=== PATIENT | female | born 1995 | race Caucasian/White ===

== ENCOUNTER → 2023-07-13 | Outpatient (CLI) | payer SELFPAY ==
--- NOTE | 2023-07-13 08:58 | US_ITS ---
STUDY: ULTRASOUND BREAST - RIGHT REASON FOR EXAM: Female, 28 years old. Intermittent palpable right breast lump not resolving with menstrual cycle. TECHNIQUE: Axial and longitudinal images of the RIGHT breast were performed with a high resolution ultrasound transducer. # OF IMAGES: 29 COMPARISON: Bilateral diagnostic mammogram performed today. FINDINGS: RIGHT Breast: At the 9:00 position of the right breast in the slightly retroareolar region there is a relatively circumscribed hypoechoic bilobed mass measuring 3 cm x 3.1 cm x 2.1 cm with vascularity. Lesion is most characteristic with a fibroadenoma in a patient of this age. However, cellular tumors may have a similar appearance. Therefore, ultrasound-guided biopsy or excision is recommended for histologic confirmation. US/Breast Limited Unilateral IMPRESSION: Bilobed hypoechoic vascular mass for which ultrasound-guided biopsy or excision is recommended for histologic confirmation. ASSESSMENT CATEGORY: BIRADS Category 4: Suspicious - Biopsy Should Be Considered. A letter regarding these results will be sent to the patient by the facility within 30 days. Electronically Signed: Huy Hatch MD at 10:21 EST ,
--- NOTE | 2023-07-13 08:58 | BI_ITS ---
MAMMOGRAPHY - BILATERAL SCREENING 3-D TOMOSYNTHESIS REASON FOR EXAM: Female, 28 years old. Right breast lump at 9:00 position lateral to the areola which is intermittently palpable and is related to menstrual cycle is. PERTINENT HISTORY: No significant family history. TECHNIQUE: 2-D mammograms and 3-D Tomosynthesis of the breast (s) were performed. CAD was performed. COMPARISON: None. FINDINGS: The breast composition is Abdomen 9:00 position of the right breast and a lateral retroareolar region there is a circumscribed partially obscured mass measuring 3.2 cm x 2.7 cm. Ultrasound of the right breast showed bilobed hypoechoic vascular mass for which ultrasound-guided biopsy or excision is recommended (see detailed right breast ultrasound report). Left breast shows scattered benign calcifications. BI/DIAG MAMM W/CAD, BILAT IMPRESSION: Lesion in the right breast for which ultrasound-guided biopsy or excision is recommended for histologic confirmation. ASSESSMENT CATEGORY: BIRADS Category 4: Suspicious - Biopsy Should Be Considered. A letter regarding these results will be sent to the patient by the facility within 30 days. FOLLOW UP RECOMMENDATION: Ultrasound Biopsy Recommended. (L) Approximately 10% of breast cancers are not detected by mammography. A normal mammogram should not delay biopsy of a clinically suspicious abnormality. Electronically Signed: Huy Hatch MD at 10:22 [facility] ,
--- OUTSIDE RECORDS SUMMARY | 2023-07-13 09:22 | XMS RPT_ITS | CCD ---
Author Name Unknown Address [address] [place] [address] Organization [facility] Care Team Providers Care Drug Abuse Program Coordinator Name Role Phone MARAL PÉREZ Unavailable Unavailable CHISMSTEVE, MARAL Verde Unavailable Unavailable VACCARIELLO, DALTON Admitting Unavailable VACCARIELLO, DALTON Attending Unavailable VACCARIELLO, DALTON Primary Care Unavailable VACCARIELLO, DALTON Consulting Unavailable PROVIDER, UNKNOWN Consulting Unavailable PROVIDER, UNKNOWN Consulting Unavailable PROVIDER, UNKNOWN Consulting Unavailable Problems Active Problems Problem Classification Problem Date Documented Da te Episodic/Chronic Unclassified (1 source) Unknown / UNK(Unknown) Onset: 08-03-2017 Past or Other Problems Problem Classification Problem Date Documented Da te Episodic/Chronic Unclassified (1 source) PREG AT TERM Onset: 08-03-2017 Results Test Name Value Interpretation Reference Range Facil ity Encounters Encounter Date Encounter Type Care Provider Facility Start: 09-22-2022 End: 09-22-2022 ambulatory DALTON SILVANOEMI Iglesiasue Villavicencio [facility] Start: 08-03-2017 End: 08-05-2017 Evaluation and management of inpatient MARAL PÉREZ Facility:[facility] Payers Date Payer Category Payer Unknown [id number] Self-pay [id number] Unknown Summary Purpose Family History No Family History Records FoundNo Family History Records FoundNo Family History Records FoundNo Family History Records Found Advance Directives No Advanced Directives Records FoundNo Advanced Directives Records FoundNo Advanced Directives Records FoundNo Advanced Directives Records Found Additional Source Comments INFORMATION SOURCE (unrecogn ized section and content) DATE CREATED AUTHOR AUTHOR'S ORGANIZ ATION 06/23/2018 [facility] DATE CREATED AUTHOR AUTHOR'S ORGANIZ ATION 09/23/2022 Iglesia Villavicencio [facility] DATE CREATED AUTHOR AUTHOR'S ORGANIZ ATION 11/27/2022 [facility] FOR RECORDS PERTAINING TO PATIENTS WHO ARE OR HAVE BEEN ENROLLED IN A CHEMICAL DEPENDENCY/SUBSTANCEABUSE PROGRAM, SOME INFORMATION MAY BE OMITTED. This clinical summary was aggregated from multiple sources. Caution should be exercised in using it in the provision of clinical care. This summary normalizes information from multiple sources, and as a consequence, information in this document may materially change the coding, format and clinical context of patient data. In addition, data may be omitted in some cases. CLINICAL DECISIONS SHOULD BE BASED ON THE PRIMARY CLINICAL RECORDS. [facility] [facility]. provides no warranty or guarantee of the accuracy or completeness of information in this document.
== END | disposition home or self-care (01) ==
LOC: OPBI 08:56
PROVIDERS: PCP Physician Assistant; Referring Provider Physician Assistant; Visit Provider Physician Assistant
DX: Z12.31 Encounter for screening mammogram for malignant neoplasm of breast (principal); N63.15 Unspecified lump in the right breast, overlapping quadrants; N63.25 Unspecified lump in the left breast, overlapping quadrants
CPT/HCPCS: 76642; 77062; 77066; G0279

== ENCOUNTER → 2023-07-19 | Outpatient (CLI) | payer SELFPAY ==
--- NOTE | 2023-07-19 09:00 | BRBX_PTH ---
PATHOLOGY RESULTS PATIENT: MYLES MORALES LOC: [facility] U#:[id number] AGE/SX: 28/F ROOM: RE07/19/[address]: Dr. 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 Negative for malignancy. See comment. LOYDA:per 07/20/2023 COMMENT Correlation with clinical, radiologic findings and appropriate follow up are necessary. MICROSCOPIC DESCRIPTION Slides are reviewed. GROSS DESCRIPTION Received in fixative is one container labeled with the patient's name and designated right breast. The specimen consists of multiple elongated fragments of vigil-yellow fibroadipose tissue that in aggregate measure 1.5 x 0.3 x 0.1 cm. The entire specimen is submitted in one cassette. / LOYDA:per 07/19/2023 TC:1 Ischemic Time: 1 minute Fixation Time: 10.5 hours CPT: 73198
--- OUTSIDE RECORDS SUMMARY | 2023-07-19 10:34 | XMS RPT_ITS | CCD ---
Author Name Unknown Address [address] [place] [address] Organization [facility] Care Team Providers Care Director Safety Name Role Phone MARAL PÉREZ Unavailable Unavailable MARAL PÉREZ Unavailable Unavailable VACCARIELLO, DALTON Admitting Unavailable VACCARIELLO, DALTON Attending Unavailable VACCARIELLO, DALTON Primary Care Unavailable VACCARIELLO, DALTON Consulting Unavailable PROVIDER, UNKNOWN Consulting Unavailable PROVIDER, UNKNOWN Consulting Unavailable PROVIDER, UNKNOWN Consulting Unavailable Vaccarijonny RAMIREZ, Dalton Verde Unavailable Jon SALESN, Nida Unavailable Suzanna GUZMAN, Joe Barnett Unavailable Marino SALESN, Allyssa Unavailable Unavailable Jessica JARRETT, Dorina Verde Unavailable Unavaila ble Jose Angel SALESN, Ines Unavailable Unavailable Mike GUZMAN, Aleyda Serrano Unavailable Barry EMERGENCY MANAGEMENT CONSULTANT, Imani Poe Unavailable Unavailab jazzy Lee CNM, Crystal K Unavailable Vess EMERGENCY MANAGEMENT CONSULTANT, Sissy L Unavailable Unavailable Zaugg EMERGENCY MANAGEMENT CONSULTANT, Joanne Unavailable Unavailable Unavailable Unavailable [facility] Unavailable Medications Completed/Discontinued Medications Medication Drug Class(es) Dates Sig (Normalized) Sig (Original) amoxicillin 875 mg oral tablet (4 sources) Penicillin-class Antibacterial Start: 09-18-2022 End: 11-23-2022 take 1 tablet by mouth twice daily Amoxicillin 875 MG Oral Tablet ; 1 (one) Tablet bid for 0 days Quantity: 20 {Tablet} Refills: 0 Ordered: 23-Nov-2022 ZOEY Webb Start: 18-Sep-2022 End: 23-Nov-2022 Status: Inactive 21 day ethinyl estradiol 0.137415 mg/hr / etonogestrel 0.005 mg/hr vaginal system (4 sources) Progestin, Estrogen Start: 02-12-2014 End: 11-23-2014 NUVARING, 0.12-0.015MG/24HR (Vaginal Ring) ; 1 (one) Ring PV x3wk, off x1wk for 0 days Quantity: 1 {Ring} Refills: 11 Ordered: 23-Nov-2014 ZOEY Webb Start: 12-Feb-2014 End: 23-Nov-2014 Status: Inactive Comments: Start: on or before day 5 of menstrual cycle Problems Active Problems Problem Classification Problem Date Documented Da te Episodic/Chronic Abdominal pain (4 sources) Right lower quadrant pain; Translations: [Right lower quadrant pain] 05-23-2018 Episodic Allergic reactions (4 sources) Contact dermatitis due to poison lashell; Translations: [Allergic contact dermatitis due to plants, except food] 05-24-2021 Episodic Contraceptive and procreative management (4 sources) Contraception ; Translations: [Encounter for contraceptive management, unspecified] 09-13-2015 Episodic Inflammatory diseases of female pelvic organs (8 sources) Bacterial vaginosis; Translations: [Acute vaginitis] 11-27-2022 Episodic Nonmalignant breast conditions (20 sources) Lump in bilateral breasts; Translations: [Unspecified lump in the right breast, unspecified quadrant] 07-11-2023 Episodic Other complications of (8 sources) Anemia of ; Translations: [Anemia complicating , second trimester] 11-14-2021 Chronic Other complications of (8 sources) Reduced movement; Translations: [Decreased movements, third trimester, not applicable or unspecified] 11-14-2021 Episodic Other complications of (8 sources) RhD negative; Translations: [Other specified related conditions, second trimester] 11-14-2021 Episodic Other complications of (4 sources) Rhesus isoimmunization, unspecified as to episode of care or not applicable 04-29-2015 Episodic Other female genital disorders (8 sources) Vaginal discharge; Translations: [Other specified noninflammatory disorders of vagina] 07-05-2023 Episodic Past or Other Problems Problem Classification Problem Date Documented Date Episodic/Chronic Unclassified (1 source) PREG AT TERM Onset: 08-03-2017 Unclassified (4 sources) Breast lump - The lump is on the right breast. The onset of the lump has been acute and has been occurring in an intermittent (correlate with her period) pattern for 2 months. The course has been increasing. The lump is described as non tender. The lump is described as moderate. Note for Breast lump : Initially noticed it when she on her period and it was small - resolved.Periods are irregular since of son who is now 2 years old. In the past week or so it feels bigger and not going away and is not her on period currently. Nontender. No discharge from the nipple.Using drops to help with weight loss and irregular periods from collection correspondent -- has been using those for a few weeks. Primary Teacher didn't think it was anything to worry about. Unknown what is in the drops.No family history of breast cancer. Mom had 3 siblings with cancers - ovarian, esophageal, and stomach. 07-05-2023 Unclassified (4 sources) Vaginal discharge - The discharge has been occurring for 1 week and has been constant. The discharge has been heavy (pt said it is white) and is characterized as white. Note for Vaginal discharge : pt has had yeast in the past when she had her daughter.pt said it does not burn when she urinates but can burn when she wipes 11-24-2022 Unclassified (4 sources) Cough - The onset of the cough has been sudden and has been occurring in a persistent pattern for 3 weeks. The cough is characterized as dry. The cough occurs mainly at night. Associated symptoms include chest pain (left flank/side) and hoarseness, while there is no fever. Note for Cough : -Started after exposure to [place] in [place]. Entire family was coughing but they improved and she has not. 09-18-2022 Unclassified (4 sources) Post- visit - The patient is here for a scheduled follow-up visit after a vaginal delivery. There were no complications. The patient feels well with no complaints, is sleeping well and has good energy level. There are no urinary problems. There are no bowel problems. Perineum/wound: perineum healing well. There is no lochia. The patient is formula feeding the . There are no feeding difficulties. Menstruation: spotting. Patient states that sexual activity has resumed and contraception is used. The patient's current method of control is condoms. The patient has resumed physical activity. Patient states that she is coping/adjusting to motherhood well and family is interacting well with . 11-14-2021 Unclassified (4 sources) visit - The patient is here for a 38 week (3 days) visit. 09-13-2021 Unclassified (4 sources) visit - The patient is here for a 36 week (6 days) visit. 09-02-2021 Unclassified (4 sources) visit - The patient is here for a 33 week (6 days) visit. 08-12-2021 Unclassified (8 sources) visit - The patient is here for a 29 week visit. 07-14-2021 Unclassified (4 sources) visit - The patient is here for a 19 week visit. 05-04-2021 Unclassified (4 sources) Dizziness - The onset of the dizziness has been gradual and has been occurring in a persistent (says its only lasts a few minutes) pattern for 6 days. The course has been recurrent. The dizziness is characterized as lightheadedness (feels foggy) and spinning of the environment. The dizziness is precipitated by position change (only a few times). There has been associated nausea and neck pain (goes to chiro and had adjustment 2 weeks ago), while there has been no associated vomiting, headache, fever, upper respiratory infection symptoms, tinnitus, ear pain, ear fullness, neck stiffness, visual changes, facial paralysis or falling episodes. The dizziness is relieved by lying still (and rest). 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 Note for Dizziness : feels like a toño buenrostro contraction that last 5-10 minsfeels like its a hot flash at times she gets really warmpt is 18 wks 04-25-2021 Unclassified (8 sources) visit - The patient is here for a 12 week visit. 03-16-2021 Unclassified (4 sources) visit - The patient is here for a initial visit. Last menstrual period: Date: (12/18/20). Estimated date of delivery is : (09/24/21) The patient has good energy level and feels well with minor complaints. The patient has complaints of nausea. There has been no vaginal discharge. There has been no vaginal bleeding. There have been no urinary problems. There have been no bowel problems. The patient takes supplemental vitamins & iron. Habits do not include tobacco, alcohol or illicit drugs. The patient states that she is coping/adjusting to well and family is supportive. 02-10-2021 Unclassified (4 sources) Abdominal pain - The onset of the abdominal pain has been acute and has been occurring in an intermittent pattern for 4 days. The course has been recurrent. The pain is described as a moderate sharp pain. The pain is located in the right lower quadrant and does not radiate. The symptoms have no aggravating factors but have no relieving factors. The symptoms have been associated with nausea, while the symptoms have not been associated with dark urine, fever or vomiting. Note for Abdominal pain : LMP-05/15/2018 05-23-2018 Unclassified (4 sources) Post- visit - The patient is here for a scheduled follow-up visit after a vaginal delivery. There were no complications. The patient feels well with no complaints, is sleeping well and has good energy level. The patient denies depression (post- blues). There are no urinary problems. There are no bowel problems. Perineum/wound: perineum healing well. There is no lochia. The patient is formula feeding the infant. There are no feeding difficulties. Menstruation: Last menstrual period date: (08/21/15). The patient's current method of control is control pills (wants nuvaring). The patient has resumed physical activity. Patient states that she is coping/adjusting to motherhood well and family is interacting well with . 09-09-2015 Unclassified (4 sources) visit - The patient is here for a 39 week visit. 07-07-2015 Unclassified (4 sources) Visit - The patient is here for a 38 week visit. 07-01-2015 Unclassified (4 sources) visit - The patient is here for a 37 week visit. 06-24-2015 Unclassified (4 sources) visit - The patient is here for a 36 week visit. 06-16-2015 Unclassified (4 sources) visit - The patient is here for a 35 week visit. 06-14-2015 Unclassified (4 sources) Visit - The patient is here for a 33 week visit. 05-27-2015 Unclassified (4 sources) Visit - The patient is here for a 25 week visit. 04-01-2015 Unclassified (4 sources) Visit - The patient is here for a 21 week visit. 03-04-2015 Unclassified (4 sources) Visit - The patient is here for a 17 week visit. 02-04-2015 Unclassified (4 sources) visit (initial) - The patient suspects she is due to a positive home test. Last menstrual period: 10 weeks ago. - (1). 11-23-2014 Results Test Name Value Interpretation Reference Range Facil ity Vital Signs Date Time Vital Sign Value Performing Clinician Faci lity 07-05-2023 15:02-0500 Body height 172.72 cm Imani Reddy LPN [facility] 07-05-2023 15:02-0500 Body mass index (BMI) [Ratio] 36.34 kg/m2 Imani Reddy LPN [facility] 07-05-2023 15:02-0500 Body surface area Derived from formula 2.2 m2 Imani Reddy LPN [facility] 07-05-2023 15:02-0500 Body weight 108.41 kg Imani Reddy LPN [facility] [place], [facility] 07-05-2023 15:02-0500 Diastolic blood pressure 73 mm[Hg] Imani Reddy LPN [facility] [place], [facility] Encounters Encounter Date Encounter Type Care Provider Facility Start: 07-13-2023 End: 07-13-2023 Orders Dalton Odom MD Work Phone: [facility] Start: 07-13-2023 End: 07-13-2023 Orders Dalton Odom MD Work Phone: [facility] Start: 07-11-2023 End: 07-11-2023 Orders Dalton Odom MD Work Phone: [facility] Start: 07-05-2023 End: 07-05-2023 Patient encounter procedure Dalton Odom MD Work Phone: [facility] Start: 11-27-2022 End: 11-27-2022 Orders Dalton Odom MD Work Phone: [facility] Start: 11-24-2022 End: 11-24-2022 Office outpatient visit 10 minutes Dalton Odom MD Work Phone: [facility] Start: 09-22-2022 End: 09-22-2022 ambulatory DALTON ODOM [facility] Start: 09-22-2022 End: 09-22-2022 Orders Dalton Odom MD Work Phone: [facility] Start: 09-18-2022 End: 09-18-2022 Office outpatient visit 15 minutes Dalton Odom MD Work Phone: [facility] Start: 11-14-2021 End: 11-14-2021 Office outpatient visit 25 minutes Dalton Odom MD Work Phone: [facility] Start: 09-13-2021 End: 09-13-2021 Office outpatient visit 15 minutes Dalton Odom MD Work Phone: [facility] Start: 09-02-2021 End: 09-02-2021 Office outpatient visit 15 minutes Dalton Odom MD Work Phone: [facility] Start: 08-12-2021 End: 08-12-2021 Office outpatient visit 15 minutes Dalton Odom MD Work Phone: [facility] Start: 07-14-2021 End: 07-14-2021 Patient encounter procedure Dalton Odom MD Work Phone: [facility] Start: 07-04-2021 End: 07-04-2021 Orders Dalton Odom MD Work Phone: [facility] Start: 07-01-2021 End: 07-01-2021 Patient encounter procedure Dalton Odom MD Work Phone: [facility] Start: 06-02-2021 End: 06-02-2021 Patient encounter procedure Dalton Odom MD Work Phone: [facility] Start: 05-23-2021 End: 05-24-2021 Orders Dalton Odom MD Work Phone: [facility] Start: 05-04-2021 End: 05-04-2021 Patient encounter procedure Dalton Odom MD Work Phone: [facility] Start: 04-25-2021 End: 04-25-2021 Office outpatient visit 15 minutes Dalton Odom MD Work Phone: [facility] Start: 03-16-2021 End: 03-16-2021 Office outpatient visit 15 minutes Dalton Odom MD Work Phone: [facility] Start: 02-10-2021 End: 02-10-2021 Office outpatient visit 25 minutes Dalton Odom MD Work Phone: [facility] Start: 05-23-2018 End: 05-23-2018 Patient encounter procedure Dalton Odom MD Work Phone: [facility] Start: 08-03-2017 End: 08-05-2017 Evaluation and management of inpatient MARAL PÉREZ Facility:[facility] Start: 09-14-2015 End: 09-14-2015 Historical Summary Dalton Odom MD Work Phone: [facility] Start: 09-13-2015 End: 09-13-2015 Orders Dalton Odom MD Work Phone: [facility] Start: 09-09-2015 End: 09-09-2015 Patient encounter procedure Dalton Odom MD Work Phone: [facility] Start: 07-07-2015 End: 07-07-2015 Patient encounter procedure Dalton Odom MD Work Phone: [facility] Start: 07-01-2015 End: 07-01-2015 Patient encounter procedure Dalton Odom MD Work Phone: [facility] Start: 06-23-2015 End: 06-24-2015 Patient encounter procedure Dalton Odom MD Work Phone: [facility] Start: 06-16-2015 End: 06-16-2015 Patient encounter procedure Dalton Odom MD Work Phone: [facility] Start: 06-09-2015 End: 06-14-2015 Patient encounter procedure Dalton Odom MD Work Phone: [facility] Start: 05-27-2015 End: 05-27-2015 Patient encounter procedure Dalton Odom MD Work Phone: [facility] Start: 04-29-2015 End: 04-29-2015 Patient encounter procedure Dalton Odom MD Work Phone: [facility] Start: 04-01-2015 End: 04-01-2015 Patient encounter procedure Dalton Odom MD Work Phone: [facility] Start: 03-04-2015 End: 03-04-2015 Patient encounter procedure Dalton Odom MD Work Phone: [facility] Start: 02-04-2015 End: 02-04-2015 Patient encounter procedure Dalton Odom MD Work Phone: [facility] Start: 12-28-2014 End: 12-28-2014 Patient encounter procedure Dalton Odom MD Work Phone: [facility] Start: 11-25-2014 End: 11-25-2014 Historical Summary Dalton [facility]dom MD [facility] Start: 11-23-2014 End: 11-23-2014 Patient encounter procedure Dalton Odom MD Work Phone: [facility] Start: 02-12-2014 End: 02-12-2014 Manual pelvic examination Dalton Odom MD Work Phone: [facility] Start: 02-12-2014 End: 02-12-2014 Patient encounter procedure Dalton Odom MD Work Phone: [facility] Procedures Date Procedure Procedure Detail Performing Clinician Start: 07-13-2023 End: 07-13-2023 Us breast uni real time with image limited Aleyda Mckeon PA-C Work Phone: Start: 07-11-2023 End: 07-13-2023 Diagnostic mammography computer-aided detcj bi Aleyda Mckeon PA-C Work Phone: Start: 09-22-2022 End: 09-22-2022 Chest x-ray Dalton Rios Work Phone: Start: 11-14-2021 End: 11-14-2021 Screening for depression performed Crystal K Uptain CNM Work Phone: Start: 09-13-2021 End: 09-13-2021 Ob care antepartum vag dlvr & Crystal K Uptain CNM Work Phone: Start: 09-02-2021 End: 09-02-2021 Ob care antepartum vag dlvr & Crystal K Uptain CNM Work Phone: Start: 08-12-2021 End: 08-12-2021 Ob care antepartum vag dlvr & Crystal K Uptain CNM Work Phone: Start: 07-14-2021 End: 07-14-2021 Ob care antepartum vag dlvr & Dalton Odom MD Work Phone: Start: 07-04-2021 End: 07-04-2021 biophysical profile non-stress testing Dalton Odom MD Work Phone: Start: 07-01-2021 End: 07-01-2021 Rhophylac injection Dalton Rios Work Phone: Start: 07-01-2021 End: 07-01-2021 Ob care antepartum vag dlvr & Dalton Odom MD Work Phone: Start: 06-02-2021 End: 06-03-2021 Us preg uterus after 1st trimest 07/16 gestation Dalton Odom MD Work Phone: Start: 06-02-2021 End: 06-02-2021 Ob care antepartum vag dlvr & Dalton Odom MD Work Phone: Start: 05-04-2021 End: 05-04-2021 Ob care antepartum vag dlvr & Dalton Odom MD Work Phone: Start: 04-25-2021 End: 04-29-2021 Ecg routine ecg w/least 12 lds i&r only Joe Briseno PA-C Work Phone: Start: 04-25-2021 End: 05-06-2021 Xtrnl ecg & 48 hr record scan stor w/r&i Joe Segundostetler PA-C Work Phone: Start: 03-16-2021 End: 03-16-2021 Ob care antepartum vag dlvr & Crystal K Uptain CNM Work Phone: Start: 02-10-2021 End: 02-10-2021 Ob care antepartum vag dlvr & Crystal K Uptain CNM Work Phone: Start: 02-10-2021 End: 02-10-2021 Us uterus 14 wk transabdl 07/16 gestat Crystal K Uptain CNM Work Phone: Start: 08-16-2015 End: 08-16-2015 Microscopic examination of cervical Papanicolaou smear Ines Walter LPN Plan of Treatment Date Care Activity Detail Author Start: 07-13-2023 Us breast uni real t yvon with image limited LIMITED ULTRASOUND OF RIGHT BREAST (48136) Start: 13-Jul-2023 Intent [facility] Start: 07-11-2023 Diagnostic mammograp hy computer-aided detcj bi Mammogram 3D DIAGNOSTIC, bilateral (tomosynthesis) (62901) Start: 11-Jul-2023 Intent [facility] Start: 07-05-2023 Us breast uni real t yvon with image limited Breast US, Bilateral Complete ([id number]) Start: 05-Jul-2023 Intent Comments: Please call patient to schedule [facility] Immunizations Immunization Date Immunization Notes Care Provider Fa [facility] 02-03-2014 hepatitis B vaccine, adult dosage Dalton Odom MD Work Phone: [facility] 05-04-1996 diphtheria, tetanus toxoids and acellular pertussis vaccine Dalton Odom MD Work Phone: [facility] 10-20-1995 diphtheria, tetanus toxoids and acellular pertussis vaccine Dalton Odom MD Work Phone: [facility] 10-20-1995 measles, mumps and rubella virus vaccine Dalton Odom MD Work Phone: [facility] 10-20-1995 trivalent poliovirus vaccine, live, oral Dalton Odom MD Work Phone: [facility] 09-28-1995 diphtheria, tetanus toxoids and acellular pertussis vaccine Dalton Odom MD Work Phone: [facility] 1994 trivalent poliovirus vaccine, live, oral Dalton Odom MD Work Phone: [facility] Payers Date Payer Category Payer Unknown [id number] Self-pay [id number] Unknown Social History Date Type Detail Facility Child(cindy) Child(cindy) [facility]; [facility] Tobacco Use: Tobacco Use: ; Never smoker. [facility]; [facility] Female [facility]; [facility] Work Phone: Never smoked tobacco [facility]; [facility] Work Phone: Summary Purpose Family History Down Syndrome Status:Active Comments:Family Members In General. Father Status:Active Comments:In good health. Mother Status:Active Comments:In good health. No Known Family History Onset: 5 Status:Inactive Down Syndrome Status:Active Comments:Family Members In General. Father Status:Active Comments:In good health. Mother Status:Active Comments:In good health. No Known Family History Onset: 5 Status:Inactive Down Syndrome Status:Active Comments:Family Members In General. Father Status:Active Comments:In good health. Mother Status:Active Comments:In good health. No Known Family History Onset: 5 Status:Inactive Down Syndrome Status:Active Comments:Family Members In General. Father Status:Active Comments:In good health. Mother Status:Active Comments:In good health. No Known Family History Onset: 5 Status:Inactive Advance Directives No Advanced Directives Records FoundNo Advanced Directives Records FoundNo Advanced Directives Records FoundNo Advanced Directives Records Found Additional Source Comments INFORMATION SOURCE (unrecogn ized section and content) DATE CREATED AUTHOR AUTHOR'S ORGANIZ ATION 06/23/2018 [facility] DATE CREATED AUTHOR AUTHOR'S ORGANIZ ATION 09/23/2022 [facility] DATE CREATED AUTHOR AUTHOR'S ORGANIZ ATION [...] BE BASED ON THE PRIMARY CLINICAL RECORDS. [facility]. provides no warranty or guarantee of the accuracy or completeness of information in this document.
== END | disposition home or self-care (01) ==
LOC: LABSPEC 10:09
PROVIDERS: PCP Physician Assistant; Referring Provider Surgery; Visit Provider Surgery
DX: D24.1 Benign neoplasm of right breast (principal)
CPT/HCPCS: 88305

== ENCOUNTER 2023-07-26 08:04 | Day surgery (SDC) | payer SELFPAY ==
[2023-07-26] VITALS (10 sets, daily range): BP systolic 91–126; BP diastolic 54–81; PULSE 62–76; RESP 16–18; TEMP 36.1–36.5; O2SAT 92–100; BMI 37.5
[2023-07-26] MEDS: Lactated Ringers 1,000 ML 15 ML IV ×2 (08:44→10:54)
[2023-07-26 08:46] LABS: Internal QC Validated? YES +Cl - CLEAR BKGD; Pregnancy, Urine Negative Negative
--- NOTE | 2023-07-26 09:21 | PCM.HP.BLA ---
History and Physical Date of Admission: 07/26/23 Date of Service: 07/19/23 MR#: [id number] Acct: [id number] Name: MYLES MORALES Rep #: [id number] : 1995 Provider: Dr. Madhuri Tobar MD Age/Sex: 28/F Location: [facility] Status: Signed Intake Vital Signs 07/19/2407:54 Weight: 244 lb BP 121/74 H Blood Pressure Location Rt brachial Position Sitting Respiration 17 Pulse 73 Pulse Source Monitor Pulse Oximetry (%) 100 Oxygen Delivery Method room air Intake Visit Reasons: R BREAST BIRADS 4 Chief Complaint: right breast birads 4 Is patient in pain?: No Allergies No Known Allergies Allergy (Unverified 07/19/23 08:55) Medications NK 07/19/23 [History Confirmed 07/19/23] PFSH Family History (Updated 07/19/23 @ 08:54 by Adelita Julio) Grandfather CVA (cerebral vascular accident) Heart diseaseAunt CancerUncle Cancer Social History (Updated 07/19/23 @ 08:54 by Adelita Julio) Smoking Status: Never smoker alcohol intake: never substance use type: does not use HPI HPI HPI: 28-year-old presents due to right breast mass. Patient states she noticed this in August but states it was smaller at that time. States she did notice change in size with her cycle. However for the last 3 weeks she has noticed this just been larger in size. Patient had mammogram as well as ultrasound which showed a 3 cm x 3 cm x 2 cm hypoechoic bilobular nodule with increased vascularity?could be fibroadenoma given a BI-RADS 4. Patient is interested in having this excised even if it is benign in the future. Patient denies pain. patient's age at menses 13, age at time of of first child 20, no family history of breast cancer, no previous breast biopsies. ROS General General: No weight change, appetite, fatigue, colon cancer, breast cancer or weakness HEENT HEENT: No difficulty swallowing, eye injury, eye surgery, swollen glands or hoarseness Endo Endocrine: No thyroid disease, diabetes mellitus, thyroid cancer, Hair loss, heat intolerance or cold intolerance Skin Skin: No rash or changing moles Breast Breast: Yes right breast lump, abnormal mammogram and abnormal US; No left breast lump, nipple discharge, breast pain or breast enlargement Musc Musculoskeletal: No back problems, arthritis, rheumatoid arthritis, gout or joint pain Cardio Cardiovascular: No murmur, pacemaker, heart disease, atrial fibrillation, high blood pressure, heart attack, heart stent, palpitations, shortness of breat with exertion or chest pain Psych Psychiatric: No depression, anxiety or hearing voices Resp Respiratory: No shortness of breath, No sleep apnea, No cough, No COPD, No asthma, No emphysema and No wheezing Gastro Gastrointestinal: No abdominal pain, No nausea or vomiting, No diarrhea, No constipation, No blood in stool, No acid reflux, No hemorrhoids, No ulcers, No gallbladder problem and No black,tarry stools Froy Hematologic: No blood thinners, No blood disorders, No bleeding, No anemia and No blood clots Neuro Neurologic: No system reviewed and no additional complaints, except as documented, No as per HPI, No abnormal gait, No abnormal hearing, No abnormal movements, No abnormal speech, No behavioral changes, No burning sensations, No confusion, No convulsions, No disequilibrium, No dizziness, No localized weakness, No frequent falls, No headache(s), No lack of coordination, No loss of vision, No memory loss, No numbness, No other visual disturbances, No radicular pain, No restless legs, No sensory deficit, No syncope, No tingling, No tremor(s), No weakness and No other Exam Const General: cooperative, healthy appearing and no acute distress [facility] Head: normal to inspection Chest Other: Breast inspection: symmetric bilaterally Right breast: Fibroglandular tissue, 4cm x4cm at 9:00 retroareolar, no nipple discharge or pain, no change in overlying skin Left breast: Fibroglandular tissue, no masses on exam, no nipple discharge or pain, no change in overlying skin No axillary or supraclavicular adenopathy bilaterally Resp Effort & Inspection: normal respiratory effort Cardio Rate: regular rate GI Inspection: non-distended Palpation: soft Skin General: no rashes or lesions noted Neuro General: patient oriented x3 Extrem General: no clubbing, cyanosis or edema Psych Affect: normal affect Office Procedures Biopsy Provider Documentation Reviewed the ultrasound and mammography with patient and her and discussed the need for biopsy. Reviewed the procedure of biopsy with a core biopsy device. A marker clip will be placed to identify the location. Patient has been counseled to the risks/benefits of the procedure. I have explained the risks of the surgery, including but not limited to: infection, bleeding, injury to any blood vessels/nerves, scar tissue, missing the lesion, further surgery, etc. - the patient understands and agrees to proceed. I have answered all of the patient's questions to her satisfaction and she has no further questions. Signed consent is completed. Procedure: Right ultrasound-guided core biopsy Description of procedure: Patient was brought into the ultrasound room in the right breast was marked. A timeout was completed verifying correct patient, procedure, site, specially, prior to beginning procedure. The right breast was prepped and draped in usual sterile fashion and using local anesthesia was obtained with 1% lidocaine with epi. The lesion was located with the ultrasound at 9:00 retroareolar. Small incision was made with 11 blade to introduced the BARD MaxCore through the skin. Under ultrasound guidance multiple core samples were obtained using then 14-gauge BARD MaxCore and sent in formalin for pathology. The Bard dual ultra coil clip was then deployed into the biopsy cavity under ultrasound guidance and a picture was taken. Upon completion procedure hemostasis was obtained and a Steri-Strip and OpSite were placed. The patient tolerated the procedure well and left the office in good condition. Alert Career And Guidance Counselor Yes Biopsy Breast Biopsy: [id number] US Guidance Procedure Time Out Time Out Informed consent given: Yes Consent signed: Yes Time out checklist: patient, procedure, site marked/identified, positioning of patient, supplies available, allergies confirmed and team agrees on procedure Time out staff in room: Yes Time out verified: Yes Time out date: 07/19/23 Time out time: 09:00 Assessment and Plan Assessment and Plan (1) Breast mass, right: Status: Acute Plan Tolerated breast biopsy well. Will call patient with pathology report. Patient is concerned due to the size and would like an excision even if it is a fibroadenoma so we will schedule that after pathology report is completed. Addendum: Pathology was consistent with a fibroadenoma patient still plans on having excision. Madhuri Tobar M.D. Pager: [phone] [facility] [address] [place] [address], [address] [place] [address] Office: [phone] Coding Level of Care Code Attention Career And Guidance Counselor Diagnoses Breast mass, right N63.10 CPT Codes Biopsy - Breast Biopsy: 78513 US Guidance (54033) 07/20/23 1004 <Electronically signed by Madhuri Tobar MD> Date Madhuri Tobar MD
[2023-07-26] MEDS: Cefazolin 2 GM in 0.9% Normal Saline (100mL Bag) 100 ML IV (09:47)
--- NOTE | 2023-07-26 10:29 | BI_ITS ---
SURGICAL BREAST SPECIMEN RADIOGRAPH CLINICAL: Document presence of tissue clip marker in biopsy specimen. FINDINGS: Specimen shows presence of tissue clip marker. Electronically Signed: Ramesh Rodriguez MD at 10:43 EST , BI/Breast Biopsy Specimen IMPRESSION: undefined
--- NOTE | 2023-07-26 10:30 | BREAST_PTH ---
PATHOLOGY RESULTS PATIENT: MYLES MORALES LOC: [facility] [place] U#:[id number] AGE/SX: 28/F ROOM: RE07/26/[address]: Dr. 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 Negative for malignancy. See comment. 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 Case has been reviewed in consultation with Dr. Tenorio who concurs with the above diagnosis. IDC:AM MICROSCOPIC DESCRIPTION Slides are reviewed. GROSS DESCRIPTION Received is one container labeled with the patient's name and not further designated. The specimen consists of an unoriented piece of vigil-yellow nodule measuring 3.5 x 3.0 x 3.0 cm and weighing 12.1 gm. The specimen is inked, serially sectioned and reveals vigil-white, solid cut surfaces. Areas of hemorrhage, necrosis or cystic degeneration are not identified. Acquisition Advisor sections are submitted in six cassettes. / LOYDA:per 07/27/23 TC:1 CPT: 58959
--- NOTE | 2023-07-26 10:32 | PCM.OPRPT ---
Report of Operation Date of Procedure: 07/26/23 Pre-Operative Diagnosis: Right breast fibroadenoma Post-Operative Diagnosis: Same Surgery/Procedure Performed:: Excision of right breast fibroadenoma Surgeon: Madhuri Tobar rough and trueing machine operator: Radha Puckett Type of Anesthesia: General/Supplemental Anesthesiologist: Chuy Vinson Special Medications: Ancef 2 g IV x 1 Specimen's removed: 1. Right breast fibroadenoma Estimated Blood Loss (mL): <10 cc Description of Procedure: Patient is brought in operating room placed spine on operating table. A timeout was completed verifying patient completion, site, positioning, special equipment prior to beginning procedure. General anesthesia was induced. Patient's right breast was prepped and draped in usual sterile fashion. Incision was planned along the areolar border overlying the fibroadenoma. This was made with a 15 blade scalpel. This was deepened to the fibroadenoma with electrocautery. Fibroadenoma was circumferentially dissected with electrocautery and sent to mammography to confirm that the clip was also removed which was verified. Bleeding was controlled with electrocautery. Incision was closed with 3-0 Vicryl interrupted sutures subdermal and skin was closed with running 4-0 Monocryl. Dermabond was placed on incision. Surgical bra and fluffs were also placed. Patient Toller procedure well and taken to the postanesthesia care unit in stable condition. Complications none
[2023-07-26] MEDS: Bupivacaine 0.25% 30 ML Vial (10:34)
--- NOTE | 2023-07-26 10:36 | DCINST_ITS ---
Discharge Instructions Diet Discharge Diet: No restrictions Activity Discharge Activity: May Not Drive (for 2-3 days or while taking narcotic pain meds.) May shower in (days): 1 Lifting Restrictions: 10 pounds for 1 week. Dressing / Incision Call your doctor if your incision/area has: Continuous Slow Oozing, Sudden Increased Bleeding, Increased Pain/ Swelling and Increased Redness Call your doctor if you observe: Fever of 101 or Higher Suture Line Care: Avoid Pulling/Pushing and Avoid Pinching/Bending Remove Dressing in: 1 day Additional Dressing/Incision Instructions:: Dermabond (glue) was used at the incision this may start to peel off in about 5 days. Follow Up Care Please Follow Up With: Madhuri Tobar MD When: Please call [phone] for an appointment to be seen in 2 week. Test Results: Test results from this visit will be discussed in further detail at your follow- up appointment, if applicable. Discharge Plan Admission Attending Provider: Madhuri Tobar Primary Care Provider: Aleyda Mckeon Discharge Orders/Prescriptions Prescriptions: New hydrocodone-acetaminophen 5-325 mg tablet 1 tab PO Q6H PRN (Reason: pain) 3 Days Qty: 5 0RF Referrals / Follow Up: Aleyda Mckeon PA [Primary Care Provider] - Disposition Disposition (needs filled in before D/C Order can be placed): Home, Self Care
== END 2023-07-26 12:47 | disposition home or self-care (01) ==
LOC: SDC 08:22 → AC 08:22
PROVIDERS: Anesthesiology; PCP Physician Assistant; Referring Provider Surgery; Visit Provider Surgery
PROC: (CPT 19125; principal; 2023-07-26 09:15)
DX: D24.1 Benign neoplasm of right breast (principal)
CPT/HCPCS: 19125; 00400; 76098; 81025; 88305; A4648; J7120; J2405